=== PATIENT | female | born 1955 | race Caucasian/White ===

== ENCOUNTER → 2017-11-28 | Outpatient (CLI) | payer BC ==
--- NOTE | 2017-12-22 08:29 | Diagnostic Imaging Report ---
#[id number] - MGSCRBIL #BILATERAL DIGITAL SCREENING MAMMOGRAM WITH CAD: 11/28/2017 CLINICAL: Routine screening. No prior exams were available for comparison as study from 2016 is not reviewable because of PACS issues. Current study contains 4 films. There are scattered fibroglandular elements in both breasts. Current study was also evaluated with a Computer Aided Detection (CAD) system. There is a mole marker on the left breast. No significant masses, calcifications, or other findings are seen in either breast. IMPRESSION: NEGATIVE There is no mammographic evidence of malignancy. A 1 year screening mammogram is recommended. The patient will be notified by letter of the results. Joaquin Serrano Jr., D.O. cw/:12/19/2017 08:20:15 Longshore Equipment Operator: Nathalie MARTINEZ)(M), [facility] letter sent: Normal Exam Mammogram BI-RADS: 1 Negative
== END ==
LOC: MAMMO 10:30
PROVIDERS: ATTEND Family Medicine
DX: Z12.31 Encounter for screening mammogram for malignant neoplasm of breast (principal); Z13.820 Encounter for screening for osteoporosis
CPT/HCPCS: 77067

== ENCOUNTER 2019-11-30 12:11 | Emergency (ER) | payer OTHER ==
[~2019-11-30] VITALS: Ht 154.9 cm; Wt 70.8 kg
--- NOTE | 2019-11-30 12:19 | Emergency Department Note ---
History of Present Illnes History of Present Illness Chief Complaint: Chest Pain History of Present Illness This is a 64 year old female from Mammogram for a rapid response after it was observed by the technologist to be pale and had momentarily passed out. Patient seen at area and noted to be pale. brought to ED bed 8 for further evaluation. Patient had donated plasma earlier this AM . Historian: Patient Arrival Mode: Car Onset (how long ago): second(s) Severity: moderate Onset quality: sudden Timing of current episode: constant Progression: resolved Chronicity: new Relieving factors: none Exacerbating factors: none Associated symptoms: Reports syncope Past Medical/Family History Physician Review I have reviewed the patient's past medical and family history. Any updates have been documented here. Past Medical History Recent Fever: No Clinical Suspicion of Infectio: No New/Unexplained Change in Ment: No Social History Smoking Cessation: Never Smoker Alcohol Use: None Any Illegal Drug Use: No Review of Systems Review of Systems Constitutional: Reports weakness EENTM: Reports no symptoms Cardiovascular: Reports no symptoms Respiratory: Reports no symptoms Gastrointestinal: Reports no symptoms Genitourinary: Reports no symptoms Musculoskeletal: Reports no symptoms Integumentary: Reports no symptoms Neurological: Reports no symptoms Psychological: Reports no symptoms Endocrine: Reports no symptoms Hematological/Lymphatic: Reports no symptoms Physical Exam Related Data Allergies: Coded Allergies: No Known Allergies (Unverified , 09/26/14) Triage Vital Signs Vital Signs Date Time Temp Pulse Resp B/P (MAP) Pulse Ox O2 Delivery O2 Flow Rate FiO2 11/29/20 12:14 98.2 71 20 115/78 99 Room Air Vital signs reviewed: Yes Physical Exam CONSTITUTIONAL Constitutional: Present well-developed, Present well-nourished HENT HENT: Present normocephalic, Present atraumatic, Present oropharynx clear/moist, Present nose normal HENT L/R: Present left ext ear normal, Present right ext ear normal EYES Eyes: Reports PERRL, Reports conjunctivae normal NECK Neck: Present ROM normal PULMONARY Pulmonary: Present effort normal, Present breath sounds normal CARDIOVASCULAR Cardiovascular: Present regular rhythm, Present heart sounds normal, Present capillary refill normal, Present normal rate GASTROINTESTINAL Abdominal: Present soft, Present nontender, Present bowel sounds normal GENITOURINARY Genitourinary: Present exam deferred SKIN Skin: Present warm, Present dry MUSCULOSKELETAL Musculoskeletal: Present ROM normal NEUROLOGICAL Neurological: Present alert, Present oriented x 3, Present no gross motor or sensory deficits PSYCHOLOGICAL Psychological: Present mood/affect normal, Present judgement normal Results Laboratory Lab results reviewed: Yes Imaging Imaging results reviewed: Yes Impressions [place] [address] Patient Name: LIBRADO CHAVES MR #: [id number] : 1955 Age/Sex: 64/F Req #: [id number] Adm Physician: Ordered by: IMANI ZHANG DO Report #: [id number] Location: ER Room/Bed: Procedure: [id number] DX/CHEST SINGLE (PORTABLE) Exam Date: 11/30/19 Exam Time: 1225 REPORT STATUS: Signed TECHNIQUE: Frontal view of the chest. INDICATION: ^ERMD ORDER ^[id number] ^1225 ^Y COMPARISON: None IMPRESSION: Lines and hardware: None. Heart and mediastinum: Unremarkable. Lungs and pleura: No focal airspace consolidation. No pleural effusion. No pneumothorax. Soft tissues and bones: No acute abnormality. Signed by: Jay Sweeney MD on 11/30/2019 1:01 PM Dictated By: JAY SWEENEY DO 130 Transcribed By: CHEPE on 11/30/19 130 COPY TO: IMANI ZHANG DO~ Procedures 12 Lead ECG Interpretation ECG Interpretation : ECG: ECG 1 [place] Hat Smearer: Interpreted by ED physician Date: Nov 30, 2019 Time: 12:18 Prior ECG tracings: reviewed Rhythm: sinus tachycardia Rate: normal BPM: 73 QRS axis: normal ST segments normal: Yes T waves normal: No T wave elevation: V1-V6 Clinical Impression: non-specific ECG Assessment & Plan Medical Decision Making MDM Diff Dx : ACS, electrolye abl, hypovolumia, shock and anemia Assessment & Plan Final Impression: (1) Pre-syncope Depart Disposition: HOME, SELF-CARE Last Vital Signs Date Time Temp Pulse Resp B/P (MAP) Pulse Ox O2 Delivery O2 Flow Rate FiO2 11/30/19 12:14 98.2 71 20 115/78 99 Room Air Home Meds No Active Prescriptions or Reported Meds IMANI ZHANG DO Nov 30, 2019 12:19
[2019-11-30] MEDS ORDERED: SODIUM CHLORIDE 0.9% 1000ML 1,000 ML IV STA (12:21)
--- OUTSIDE RECORDS SUMMARY | 2019-11-30 12:44 | XMS REPORT | Clinical Summary ---
Author Author [facility] Organization [facility] Address Unknown Phone Unavailable Care Team Providers Care Biostatistics Teacher Name Role Phone Leopodlo Williamson MD PCP Allergies No Known Active Allergies Medications No known medications Active Problems Not on file Surgical History Surgery Date Site/Laterality Comments HEEL SPUR SURGERY Right Social History Date Tobacco Use Types Packs/Day Years Used Former Smoker Drinks/Week oz/Week Comments Alcohol Use No Sex Assigned at Date Recorded Not on file Last Filed Vital Signs Not on file Plan of Treatment Not on file Results Not on fileafter 11/29/2018 Insurance Type Payer Benefit Subscriber ID Effective Phone Address Plan / Dates Group PPO BCBS BCBS [id number] 2016-P CHOICE resent PPO/FEDGABRIEL L EMPL PPO Advance Directives For more information, please contact: [phone] Patient Pc Tech Explanation Type Date Recorded Advance Directives, 10/27/2016 12:28 PM Living Will and Medical Power of Personal Driver
--- OUTSIDE RECORDS SUMMARY | 2019-11-30 12:44 | XMS REPORT | Continuity of Care Document ---
Author Author [facility] t Organization [facility] Address [address] [place] [address] Phone Unavailable Care Team Providers Care Patternmaker All Around Name Role Phone Jamaal Williamson MD PCP Flavio VELAZQUEZ (BUDDY) Attphykeila Unavailable Problems This patient has no known problems. Allergies, Adverse Reactions, Alerts This patient has no known allergies or adverse reactions. Social History Social Habit Start Date Stop Date Quantity Comments Source Sex Assigned At [facility] [employer] Alcohol intake 2016-10-27 00:00:00 2016-10-27 00:00:00 Current non-drinker of alcohol (finding) [place] [facility] Smoking Status Start Date Stop Date Source Former smoker 2016-10-27 00:00:00 2016-10-27 00:00:00 [place] [facility] Medications This patient has no known medications. Procedures This patient has no known procedures. Results Test Description Test Time Test Comments Results Result Comments Source BONE DXA DUAL ENERGY 2018-11-30 15:04:00 [place] [address] Patient Name: LIBRADO CARMICHAEL MR #: [id number] : 1955 Age/Sex: 63/F Req #: [id number] Adm Physician: Ordered by: Flavio VELAZQUEZ MD (BUDDY) Report #: [id number] Location: [facility] Room/Bed: Procedure: [id number] DX/BONE DXA DUAL ENERGY Exam Date: Exam Time: REPORT STATUS: Signed Exam: Bone mineral density study. History: Osteopenia. Comparison: 11/24/2015 Discussion: Evaluation of the left hip and lumbar spine was performed utilizing DEXA Hologic bone densitometer. The study is technically adequate. Left hip total bone mineral density: 0.852gm/cm2, T-score is -0.7, Z-score is 0.3. Left hip femoral neck bone mineral density: 0.793gm/cm2, T-score is -0.5, Z-score is 0.8. Lumbar spine total bone mineral density:0.842gm/cm2, T-score is-1.9, Z-score is -0.4. Impression: 1. Normal bone mineral density of the left hip, fracture risk is not increased. 2. Osteopenia of the lumbar spine, fracture risk is increased The BMD change versus baseline is -9.9% and the BMD change versus previous -9.9% . Least significant change (LSC) for bone mineral density as provided by duster tender is 0.023 g/cm2 for lumbar spine and 0.027 g/cm2 for total hip. 10 -year fracture risk per WHO Fracture Risk Assessment Tool (FRAX) for: Major osteoporotic fracture is 6.8% Hip fracture is 0.3% The above fracture probability is calculated for an untreated patient. Fracture probably may be lower if the patient has received treatment. All treatment decisions require clinical judgment and consideration of individual patient factors, including patient preferences, comorbidities, previous drug use and risk factors not captured in the FRAX model (e.g. frailty, falls, vitamin D deficiency, increased bone turnover, interval significant decline in BMD). The patient's fracture risk is compared to an age-matched control. Medical evaluation for secondary causes of low bone bone mineral density may be appropriate. Correlate clinically for the necessity and timing of the next bone mineral density study. Signed by: Dr. Kenyon Ornelas M.D. on 11/30/2018 3:07 PM Dictated By: KENYON ORNELAS MD, MD 06 Transcribed By: CHEPE on 11/30/18 1507 COPY TO: Flavio VELAZQUEZ MD (BUDDY) MAMMOGRAPHY DIGITAL SCR BILAT 2018-11-30 12:21:00 [place] [address] Patient Name: LIBRADO CARMICHAEL MR #: [id number] : 1955 Age/Sex: 63/F Req #: [id number] Adm Physician: Ordered by: Flavio VELAZQUEZ) Report #: [id number] Location: MAMMO Room/Bed: Procedure: [id number] MG/MAMMOGRAPHY DIGITAL SCR BILAT Exam Date: 11/30/18 Exam Time: 1107 REPORT STATUS: Signed #[id number] - MGSCRBIL #BILATERAL DIGITAL SCREENING MAMMOGRAM WITH CAD: 11/30/2018 CLINICAL: Routine screening. Comparison is made to exams dated: 11/28/2017 mammogram and 11/24/2015 mammogram - [facility]. Current study contains 4 films. There are scattered fibroglandular elements in both breasts. Current study was also evaluated with a Computer Aided Detection (CAD) system. There are benign vascular calcifications in the right breast. No significant masses, calcifications, or other findings are seen in either breast. IMPRESSION: BENIGN There is no mammographic evidence of malignancy. A 1 year screening mammogram is recommended. The patient will be notified by letter of the results. IMANI WARE M.D. ct/penrad:12/02/2018 16:37:58 Senior Architect: Nathalie LIU(Flo)([place]), [facility] letter sent: Normal Exam Mammogram BI-RADS: 2 Benign Dictated By: IMANI WARE MD 36 Transcribed By: SIS on 12/02/181636 COPY TO: Flavio VELAZQUEZ MD (BUDDY) MAMMOGRAPHY DIGITAL SCR BILAT 2017-11-28 11:45:00 [place] [address] Patient Name: LIBRADO CARMICHAEL MR #: [id number] : 1955 Age/Sex: 62/F Req #: [id number] Adm Physician: Ordered by: Flavio VELAZQUEZ MD (BUDDY) Report #: [id number] Location: MAMMO Room/Bed: Procedure: [id number] MG/MAMMOGRAPHY DIGITAL SCR BILAT Exam Date: 11/28/17 Exam Time: 1036 REPORT STATUS: Signed #[id number] - MGSCRBIL #BILATERAL DIGITAL SCREENING MAMMOGRAM WITH CAD: 11/28/2017 CLINICAL: Routine screening. No prior exams were available for comparison as study from 2016 is not reviewable because of PACS issues. Current study contains 4 films. There are scattered fibroglandular elements in both breasts. Current study was also evaluated with a Computer Aided Detection (CAD) system. There is a mole marker on the left breast. No significant masses, calcifications, or other findings are seen in either breast. IMPRESSION: NEGATIVE There is no mammographic evidence of malignancy. A 1 year screening mammogram is recommended. The patient will be notified by letter of the results. Anil Serrano Jr., D.O. cw/:12/19/2017 08:20:15 Senior Architect: Nathalie LIU(Flo)([place]), [facility] letter sent: Normal Exam Mammogram BI-RADS: 1 Negative Dictated By: ANIL SERRANO DO 9 Transcribed By: SIS on 12/19/17819 COPY TO: Flavio VELAZQUEZ MD (BUDDY)
[2019-11-30 12:46] LABS: BASOPHILS # (AUTO) 0.1 (0.0-0.1); BASOPHILS % 0.9 % (0.0-1.0); EOSINOPHILS # (AUTO) 0.2 (0.0-0.4); EOSINOPHILS % 2.1 % (0.0-6.0); HEMATOCRIT 49.4 % (34.2-44.1); HEMOGLOBIN 16.3 g/dL (12.0-16.0); LYMPHOCYTES # (AUTO) 2.1 (1.0-3.2); LYMPHOCYTES % 27.1 % (18.0-39.1); MEAN CORPUSCULAR HEMOGLOBIN 28.6 pg (28-32); MEAN CORPUSCULAR VOLUME 86.7 fL (81-99); MONOCYTES # (AUTO) 0.5 (0.2-0.8); MONOCYTES % 6.7 % (4.4-11.3); NEUTROPHILS # (AUTO) 4.9 (2.1-6.9); NEUTROPHILS % 63.1 % (38.7-80.0); PLATELET COUNT 231 x10e3/uL (140-360); RED CELL DISTRIBUTION WIDTH 13.6 % (11.7-14.4)
[2019-11-30 13:04] LABS: ALANINE AMINOTRANSFERASE 15 IU/L (0-55); ALBUMIN 3.2 g/dL (3.5-5.0); ALBUMIN/GLOBULIN RATIO 1.3 (0.8-2.0); ALKALINE PHOSPHATASE 50 IU/L (40-150); ANION GAP 13.5 mmol/L (8-16); BLOOD UREA NITROGEN 15 mg/dL (7-26); BUN/CREATININE RATIO 18 (6-25); CALCIUM 8.5 mg/dL (8.4-10.2); CARBON DIOXIDE 26 mmol/L (22-29); CHLORIDE 109 mmol/L (98-107); CREATINE KINASE 61 IU/L (29-168); CREATININE, SERUM 0.85 mg/dL (0.57-1.11); EST GLOMERULAR FILTRATION RATE > 60 ML/MIN (60-); GLUCOSE 95 mg/dL (74-118); POTASSIUM 3.5 mmol/L (3.5-5.1); SODIUM 145 mmol/L (136-145)
--- NOTE | 2019-11-30 13:04 | Diagnostic Imaging Report ---
TECHNIQUE: Frontal view of the chest. INDICATION: ^ERMD ORDER ^[id number] ^1225 ^Y COMPARISON: None IMPRESSION: Lines and hardware: None. Heart and mediastinum: Unremarkable. Lungs and pleura: No focal airspace consolidation. No pleural effusion. No pneumothorax. Soft tissues and bones: No acute abnormality. Signed by: Jay Perla MD on 11/30/2019 1:01 PM
[2019-11-30 13:36] VITALS: BP 128/77
== END 2019-11-30 13:37 | disposition home or self-care (01) ==
LOC: ER 12:41
DX: R55 Syncope and collapse (principal); R42 Dizziness and giddiness; W01.0XXA Fall on same level from slipping, tripping and stumbling without subsequent striking against object, initial encounter; Y92.238 Other place in hospital as the place of occurrence of the external cause
CPT/HCPCS: 36415; 71045; 80053; 82550; 82553; 83880; 84484; 85025; 99284; J7030

== ENCOUNTER → 2019-11-30 | Outpatient (CLI) | payer OTHER | LOC: MAMMO 11:29 | PROVIDERS: ATTEND Family Medicine | DX: Z12.31 Encounter for screening mammogram for malignant neoplasm of breast (principal) | CPT/HCPCS: 77067 ==

== ENCOUNTER → 2019-12-13 | Outpatient (CLI) | payer OTHER ==
--- NOTE | 2019-12-13 10:04 | Diagnostic Imaging Report ---
Exam: Bone mineral density study. History: Osteopenia. Comparison: 11/30/2018 Discussion: Evaluation of the left hip and lumbar spine was performed utilizing DEXA Hologic bone densitometer. The study is technically adequate. Left hip total bone mineral density: 0.860gm/cm2, T-score is -0.7, Z-score is 0.4. Left hip femoral neck bone mineral density: 0.785gm/cm2, T-score is -0.6, Z-score is 0.8. Lumbar spine total bone mineral density:0.824gm/cm2, T-score is-2.0, Z-score is -0.4. Impression: 1. Normal bone mineral density of the left hip, fracture risk is not increased. 2. Osteopenia of the lumbar spine, fracture risk is increased The BMD change versus baseline is -9.0% and the BMD change versus previous 1.0% . Least significant change (LSC) for bone mineral density as provided by print support specialist is 0.023 g/cm2 for lumbar spine and 0.027 g/cm2 for total hip. 10 -year fracture risk per WHO Fracture Risk Assessment Tool (FRAX) for: Major osteoporotic fracture is 6.9% Hip fracture is 0.3% The above fracture probability is calculated for an untreated patient. Fracture probably may be lower if the patient has received treatment. All treatment decisions require clinical judgment and consideration of individual patient factors, including patient preferences, comorbidities, previous drug use and risk factors not captured in the FRAX model (e.g. frailty, falls, vitamin D deficiency, increased bone turnover, interval significant decline in BMD). The patient's fracture risk is compared to an age-matched control. Medical evaluation for secondary causes of low bone bone mineral density may be appropriate. Correlate clinically for the necessity and timing of the next bone mineral density study. Signed by: Dr. Kenyon Ornelas M.D. on 12/13/2019 10:01 AM
== END ==
LOC: DX 08:49
PROVIDERS: ATTEND Family Medicine
DX: Z13.820 Encounter for screening for osteoporosis (principal)
CPT/HCPCS: 77080

== ENCOUNTER → 2020-12-05 | Outpatient (CLI) | payer OTHER | LOC: MAMMO 12:24 | PROVIDERS: ATTEND Family Medicine | DX: Z12.31 Encounter for screening mammogram for malignant neoplasm of breast (principal) | CPT/HCPCS: 77067 ==

== ENCOUNTER → 2021-12-06 | Outpatient (CLI) | payer OTHER | LOC: MAMMO 12:31 | PROVIDERS: ATTEND Family Medicine | DX: Z12.31 Encounter for screening mammogram for malignant neoplasm of breast (principal) | CPT/HCPCS: 77067 ==

== ENCOUNTER → 2023-11-25 | Outpatient (REF) | payer OTHER | LOC: MAMMO 14:01 | PROVIDERS: ATTEND Family Medicine | DX: Z12.31 Encounter for screening mammogram for malignant neoplasm of breast (principal) | CPT/HCPCS: 77067 ==

== ENCOUNTER → 2024-11-26 | Outpatient (REF) | payer MEDICARE | LOC: MAMMO 15:30 | PROVIDERS: ATTEND Family Medicine | DX: Z12.31 Encounter for screening mammogram for malignant neoplasm of breast (principal) | CPT/HCPCS: 77067 ==